=== PATIENT | female | born 1980 | race Caucasian/White ===

== ENCOUNTER → 2016-09-18 | Outpatient (CLI) | payer BC | END | disposition home or self-care (01) | LOC: RAD.S 13:01 | DX: N63 Unspecified lump in breast (principal); N64.4 Mastodynia; N60.01 Solitary cyst of right breast ==

== ENCOUNTER → 2016-10-21 | Outpatient (CLI) | payer BC | END | disposition home or self-care (01) | LOC: RAD.S 13:00 | DX: N63 Unspecified lump in breast (principal) ==